=== PATIENT | male | born 1955 | race Caucasian/White ===

== ENCOUNTER 2020-10-11 22:03 | Emergency (ER) | payer OTHER ==
[~2020-10-11] VITALS: Ht 187.9 cm; Wt 70.9 kg
[~2020-10-11 22:03] MED LIST: GLUCOPHAGE500 MG PO; Lantus SC; QUETIAPINE FUMA25 MG PO
[2020-10-11 22:26] LABS: HEMATOCRIT 43.4 % (42.0-52.0); MEAN CELL VOLUME 90.4 fl (80.0-94.0); MEAN CORPUSCULAR HGB 30.2 pg (27.0-31.0); MEAN CORPUSCULAR HGB CONC 33.4 g/dl (33.0-37.0); NUCLEATED RED BLOOD CELL 0.1 % (0.0-0.0); PLATELET COUNT AUTOMATED 210 10*3/uL (130-400); WHITE BLOOD COUNT 27.1 10*3/uL (4.8-10.8)
[2020-10-11 22:42] LABS: ALBUMIN 2.6 gm/dl (3.1-4.5); CREATININE 2.18 mg/dL (0.70-1.30); POTASSIUM 5.1 mmol/L (3.5-5.1)
[2020-10-11 22:44] LABS: PLATELET SUFFICIENCY NORMAL (NORMAL); TOTAL CELLS COUNTED 100 #CELLS
[2020-10-11 22:51] LABS: TROPONIN I 21.2 ng/ml (<0.045)
== END 2020-10-12 02:16 | disposition short-term general hospital (02) ==
LOC: ED 22:03
PROVIDERS: Internal Medicine
DX: I44.2 Atrioventricular block, complete (principal); N17.9 Acute kidney failure, unspecified; R77.8 Other specified abnormalities of plasma proteins; E11.00 Type 2 diabetes mellitus with hyperosmolarity without nonketotic hyperglycemic-hyperosmolar coma (NKHHC); D72.829 Elevated white blood cell count, unspecified; E44.0 Moderate protein-calorie malnutrition; R74.01 Elevation of levels of liver transaminase levels; E11.22 Type 2 diabetes mellitus with diabetic chronic kidney disease; N18.30 Chronic kidney disease, stage 3 unspecified; Z79.899 Other long term (current) drug therapy; Z98.890 Other specified postprocedural states